=== PATIENT | female | born 1965 | race Caucasian/White ===

== ENCOUNTER 2020-03-04 14:55 | Inpatient (IN) | payer OTHER ==
--- NOTE | 2020-03-04 15:13 | PDOC ---
History of Present Illness - General Chief Complaint: Injury Stated Complaint: L ANKLE INJURY, LIGHHEADED Time Seen by Provider: 03/04/20 15:12 Discharge - Discharge Information Condition: Good - Follow up/Referral Referrals: Kaya Chaparro MD [Primary Care Provider] - - Patient Discharge Instructions - Post Discharge Activity
[2020-03-04 15:24] VITALS: BMI 25.2
[2020-03-04 16:28] LABS: BASO % 0.6 % (0-2.0); EOS % 4.4 % (0-4.5); HEMATOCRIT 31.1 % (32.4-45.2); HEMOGLOBIN 10.5 GM/dl (10.7-15.3); LYMPH % 14.5 % (8-40); MCH 32.6 pg (25.7-33.7); MCHC 33.7 g/dl (32.0-36.0); MEAN CELL VOLUME 96.7 fl (80-96); MEAN PLT VOLUME 9.4 fl (7.5-11.1); MONO % 8.1 % (3.8-10.2); NEUT % 72.4 % (42.8-82.8); PLATELET COUNT 211 K/MM3 (134-434); RBC 3.22 M/mm3 (3.60-5.2); WHITE BLOOD COUNT 5.9 K/mm3 (4.0-10.8)
[2020-03-04] MEDS ORDERED: ACETAMINOPHEN 1000 MG/100 ML VIAL (NON FORMULARY) IVPB ONE (16:35)
[2020-03-04] MEDS ORDERED: SODIUM CHLORIDE 500 ML IV STA (16:35)
[2020-03-04] MEDS ORDERED: ACETAMINOPHEN INJECTION 100 ML IVPB ONE (16:37)
[2020-03-04 16:43] LABS: ALBUMIN 3.8 g/dl (3.4-5.0); BILIRUBIN,TOTAL 0.6 mg/dl (0.2-1); CALCIUM 9.2 mg/dl (8.5-10); CREATININE 1.2 mg/dl (0.55-1.3); POTASSIUM 4.7 mmol/L (3.5-5.1); TOT PROT 6.7 g/dl (6.4-8.2)
--- NOTE | 2020-03-04 17:51 | PDOC ---
Documentation entered by Lele Navarro SCRIBE, acting as scribe for Suman Soria MD. Suman Soria MD: This documentation has been prepared by the Melanie mora Angel, SCRIBE, under my direction and personally reviewed by me in its entirety. I confirm that the documentation accurately reflects all work, treatment, procedures, and medical decision making performed by me. History of Present Illness - General Chief Complaint: Injury Stated Complaint: L ANKLE INJURY, LIGHHEADED Time Seen by Provider: 03/04/20 15:12 History Source: Patient Exam Limitations: No Limitations - History of Present Illness Initial Comments: 03/04/20 15:33 The patient is a 54 year old female with a significant past medical history of anxiety, depression, diabetes (insulin dependant), and rheumatoid arthritis who presents to the ED BIBA s/p fall. The patient states she stood up from a sitting position and began feeling lightheaded on her way to the bathroom. Eventually her legs gave out and she fell in the hallway of her house. The patient states 3 weeks ago she began taking a new medication for her diabetes which she takes once a week called Ozempic and her lightheadedness began a week after starting the medication. The patient comes into the ED mainly complaining of left ankle pain/swelling. The patient denies any head trauma, LOC or any other injuries. Medications: Ozempic once a week injection, Methotrexate once a week injection. Allergies: NKDA 03/04/20 17:35 Alert and oriented well-developed well-nourished mild distress due to left ankle pain cooperative Afebrile, vital signs stable HEENT normal Neck supple without bruit mass or nodes. No tenderness or deformity. Full range of motion without pain Chest clear, full breath sounds bilaterally, no rib cage or chest wall deformity or tenderness CV S1-S2 normal without murmur rub or gallop. Regular 80 Abdomen soft nontender without mass organomegaly. No CVAT Neurological C2 to 12 intact. Strength full and symmetric. No focal sensorimotor deficits. Unable to ambulate due to ankle pain No vertigo with head movement or change of position. No nystagmus Left ankle: Mild to moderate swelling both medially and laterally. Point tenderness both medial and lateral malleoli. No significant deformity. No instability. Left foot: Pulses are not palpable in either foot, though both posterior tibial pulses are well heard with Doppler. No distal sensory deficits. No diabetic changes. Impression: Bimalleolar ankle fracture, dizziness with questionable syncope that seems to be temporally related to beginning her new diabetes medication 3 weeks ago. Plan: CT is negative for acute neurological event. EKG and enzymes show no evidence of acute cardiac event. Glucose is controlled at 158. Definitive treatment of the fracture may require ORIF. Hospitalist and orthopedic surgeon has been contacted. Patient remains clinically and hemodynamically stable. Past History - Medical History Allergies/Adverse Reactions: Allergies Allergy/AdvReac Type Severity Reaction Status Date / Time No Known Allergies Allergy Unverified 03/04/20 15:14 Home Medications: Ambulatory Orders Abilify PO DAILY 03/04/20 Bupropion HCl [Wellbutrin Xl -] 150 mg PO HS 03/04/20 Folic Acid - PO DAILY 03/04/20 Insulin (LOG) Aspart [NovoLOG -] 0 units SQ QID 03/04/20 Insulin Pump [Insulin Pump - (Nf)] 1 each SQ ASDIR 03/04/20 Methotrexate WEEKLY 03/04/20 Metoprolol Succinate [Toprol Xl] 50 mg PO DAILY 03/04/20 Ozempic WEEKLY 03/04/20 Sertraline HCl [Zoloft] 100 mg PO HS 03/04/20 Simvastatin 20 mg PO HS 03/04/20 traZODone HCL [Trazodone HCl] 75 mg PO HS 03/04/20 COPD: No Diabetes: Yes HTN: Yes Hypercholesterolemia: Yes Psychiatric Problems: Yes - Psycho-Social/Smoking History Smoking History: Never smoked - Substance Abuse Hx (Audit-C & DAST Scrn) How often the patient has a drink containing alcohol: Never Score: In Men: 4 or > Positive; In Women: 3 or > Positive: 0 Screen Result (Pos requires Nsg. Audit-10AR): Negative In the last yr the pt used illegal drug/Rx for NonMed reason: No Score: Yes response is considered Positive: 0 Screen Result (Positive result requires Nsg. DAST-10): Negative Review of Systems - Review of Systems Able to Perform ROS?: Yes Comments:: 03/04/20 15:33 GENERAL/CONSTITUTIONAL: No fever or chills. No weakness. HEAD, EYES, EARS, NOSE AND THROAT: No change in vision. No ear pain or discharge. No sore throat. CARDIOVASCULAR: No chest pain or shortness of breath. RESPIRATORY: No cough, wheezing, or hemoptysis. GASTROINTESTINAL: No nausea, vomiting, diarrhea or constipation. GENITOURINARY: No dysuria, frequency, or change in urination. MUSCULOSKELETAL: +Left ankle pain/swelling. No neck or back pain. SKIN: No rash NEUROLOGIC: +Lightheadedness. No loss of consciousness, or change in strength/sensation. ENDOCRINE: No increased thirst. No abnormal weight change. HEMATOLOGIC/LYMPHATIC: No anemia, easy bleeding, or history of blood clots. ALLERGIC/IMMUNOLOGIC: No hives or skin allergy. *Physical Exam - Vital Signs Last Vital Signs Temp Pulse Resp BP Pulse Ox 98.3 F 87 15 106/72 96 03/04/20 15:06 03/04/20 15:06 03/04/20 15:06 03/04/20 15:06 03/04/20 15:06 ED Treatment Course - LABORATORY CBC & Chemistry Diagram: 03/04/20 15:50 03/04/20 15:50 Medical Decision Making - Medical Decision Making 03/04/20 15:48 EKG shows normal sinus rhythm rate 82/min. Normal axis and intervals. Some artifact is present in the lateral leads, but there appears to be no ST-T wave changes suggestive of ischemia. Normal EKG. 03/04/20 15:49 CT of the brain shows no acute hemorrhage, stroke, or other significant abnormality. There is an area of what appears to be chronic encephalomalacia. 03/04/20 17:31 X-ray of the left ankle was reviewed. There is an oblique fracture of the distal fibula as well as a minimally displaced fracture of the medial malleolus. Also visualized is a possible small avulsion from the talus, and a questionable disruption of the cortex of the posterior malleolus. Dr. Schmidt was contacted by phone. The fracture was described. He recommended splinting ice and elevation. He will consult on the patient in the hospital. Surgery may be required. Laboratory evaluation did not show any significant abnormalities. Glucose was 158. There were no electrolyte abnormalities. Cardiac enzymes were negative. 03/04/20 17:34 [facility] hospitalist was contacted for admission for further work-up of dizziness/syncope and definitive treatment of the ankle injury. Dr. Benito accepts the patient for admission. 03/04/20 17:35 A stirrup splint was applied to the ankle, the patient being more comfortable. There was no distal numbness tingling or pain. Pulses remained intact with Doppler. Discharge - Discharge Information Problems reviewed: Yes Clinical Impression/Diagnosis: Syncope Qualifiers: Syncope type: unspecified Qualified Code(s): R55 - Syncope and collapse Bimalleolar fracture of left ankle Qualifiers: Encounter type: initial encounter Fracture type: closed Qualified Code(s): S82.842A - Displaced bimalleolar fracture of left lower leg, initial encounter for closed fracture Condition: Good - Admission Yes - Follow up/Referral Referrals: Kaya Chaparro MD [Primary Care Provider] - - Patient Discharge Instructions - Post Discharge Activity
--- NOTE | 2020-03-04 17:54 | HP ---
CHIEF COMPLAINT: Fall/Lightheadedness PCP: HISTORY OF PRESENT ILLNESS: 54yo F with h/o anxiety/depression, T1DM, RA (weekly methotrexate) who presented via EMS due to fall. Patient reports feeling lightheaded while standing and felt her legs give out. She did not lose consciousness. She fell while on the way to the bathroom in the hallway. Patient could not stand and called EMS. 3 weeks prior patient was started on GLP-1 agonist for her DM and noted she has been lightheaded since this new medication was started. Pt's glucose here is 157. She reports she takes her glucose levels regularly with her lowest reading in the past weeks as 70. Pt told her antenna rigger, Dr. Sanchez, about her symptoms and reports that the antenna rigger was about to hold her next few doses of medications. Patient takes ASA regularly for which she took yesterday. Currently pt denies any fever/chills, headaches, SOB, CP, palpitations, abdominal pain, dysuria, polyuria, hematuria, hematochezia, diarrhea, n/v, numbness or sensation changes in lower extremities. Pt endorses loss of appetite with new medication. Drinks water regularly FamHx: DM; noncontributory PAST MEDICAL HISTORY: As above PAST SURGICAL HISTORY: Tonsillectomy Social History: Smoking: Denies Alcohol: Denies Drugs: Denies Allergies No Known Allergies Allergy (Unverified 03/04/20 15:14) HOME MEDICATIONS: Home Medications Medication Instructions Recorded Aripiprazole [Abilify] 5 mg PO DAILY 03/04/20 Aspirin Coated [Ecotrin -] 81 mg PO DAILY 03/04/20 Bupropion HCl [Wellbutrin Xl -] 150 mg PO HS 03/04/20 Folic Acid 1 mg PO DAILY 03/04/20 Insulin (LOG) Aspart [NovoLOG -] 0 units SQ QID 03/04/20 Insulin Pump [Insulin Pump - (Nf)] 1 each SQ ASDIR 03/04/20 Levothyroxine [Synthroid -] 112 mcg PO DAILY 03/04/20 Lisinopril [Zestril] 2.5 mg PO DAILY 03/04/20 Methotrexate Sodium/Pf 25 mg IJ WEEKLY 03/04/20 [Methotrexate 250 mg/10 ml Vial] Metoprolol Succinate [Toprol Xl] 50 mg PO DAILY 03/04/20 Semaglutide [Ozempic] 0.5 mg SQ WEEKLY 03/04/20 Sertraline HCl [Zoloft] 200 mg PO HS 03/04/20 Simvastatin 40 mg PO HS 03/04/20 Trazodone HCl 75 mg PO HS 03/04/20 traZODone HCL [Trazodone HCl] 75 mg PO HS 03/04/20 REVIEW OF SYSTEMS As per HPI PHYSICAL EXAMINATION Vital Signs - 24 hr 03/04/20 15:06 Temperature 98.3 F Pulse Rate 87 Respiratory 15 Rate Blood Pressure 106/72 O2 Sat by Pulse 96 Oximetry (%) GENERAL: Awake, alert, and fully oriented, in no acute distress. HEENT: Nc/AT, EOMI, ERNIE, sclera anicteric, MMM NECK: No JVD, no TTP to C-spine LUNGS: CTA bilaterally. No wheezes, and no crackles. No accessory muscle use. HEART: RRR, normal S1 and S2 without murmur ABDOMEN: Soft, NT/ND, normoactive bowel sounds, no guarding, MUSCULOSKELETAL: No gross deformity of ankle. In air splint. Toe ROM intact with limitation due to pain. No knee effusions EXTREMITIES: 2+ DP pulses b/l, warm, well-perfused. No calf tenderness. R ankle edema. NEUROLOGICAL: Cranial nerves II-XII intact. Normal speech. Sensation intact in R foot in all areas PSYCHIATRIC: Cooperative. Good eye contact. Appropriate mood and affect. SKIN: Warm, dry, no rashes or lesions noted Laboratory Results - last 24 hr 03/04/20 03/04/20 03/04/20 15:50 15:50 15:50 WBC 5.9 RBC 3.22 L Hgb 10.5 L Hct 31.1 L MCV 96.7 H MCH 32.6 MCHC 33.7 RDW 13.0 Plt Count 211 MPV 9.4 Absolute Neuts (auto) 4.2 Neutrophils % 72.4 Lymphocytes % 14.5 Monocytes % 8.1 Eosinophils % 4.4 Basophils % 0.6 Sodium 134 L Potassium 4.7 Chloride 97 L Carbon Dioxide 25 Anion Gap 12 BUN 20.0 H Creatinine 1.2 Est GFR (CKD-EPI)AfAm 58.51 Est GFR (CKD-EPI)NonAf 50.48 Random Glucose 158 H Calcium 9.2 Total Bilirubin 0.6 AST 24 ALT 14 Alkaline Phosphatase 61 Creatine Kinase 71 Troponin I < 0.03 Total Protein 6.7 Albumin 3.8 Urine Color Urine Appearance Urine pH Urine Protein Urine Glucose (UA) Urine Ketones Urine Blood Urine Nitrite Urine Bilirubin Urine Urobilinogen Ur Leukocyte Esterase 03/04/20 17:20 WBC RBC Hgb Hct MCV MCH MCHC RDW Plt Count MPV Absolute Neuts (auto) Neutrophils % Lymphocytes % Monocytes % Eosinophils % Basophils % Sodium Potassium Chloride Carbon Dioxide Anion Gap BUN Creatinine Est GFR (CKD-EPI)AfAm Est GFR (CKD-EPI)NonAf Random Glucose Calcium Total Bilirubin AST ALT Alkaline Phosphatase Creatine Kinase Troponin I Total Protein Albumin Urine Color Yellow Urine Appearance Clear Urine pH 6.5 Urine Protein Negative Urine Glucose (UA) Negative Urine Ketones Negative Urine Blood Negative Urine Nitrite Negative Urine Bilirubin Negative Urine Urobilinogen 0.2 Ur Leukocyte Esterase Trace H ASSESSMENT/PLAN: Syncope vs. Pre-syncope L Bimaleollar ankle fracture T1DM Hypothyroidism CAD without intervention --Likely presyncope related to medication --Suspect patient is becoming hypoglycemic during these episodes --Telemetry monitoring for aberrant rhythm --BGM ACHS with ISS coverage; patient may still be under effects of weekly GLP-1 --D50 amp PRN for hypoglycemia --Dr. Schmidt consulted in ED --Probably surgery, but will come to assess --Type and screen, coags for AM --Tylenol and morphine for PRN pain control --Continue home medications as below: Aripiprazole (Abilify) 5 mg PO DAILY NAA Levothyroxine Sodium (Synthroid -) 112 mcg PO ACBK NAA Lisinopril (Prinivil) 2.5 mg PO DAILY NAA Metoprolol Succinate (Toprol Xl -) 50 mg PO DAILY NAA Non-Formulary Medication (Sertraline Hcl [Zoloft]) 200 mg PO HS NAA Trazodone HCl (Desyrel -) 75 mg PO HS NAA diet: Diabetic/sodium PPX: SCD only R LEG Dispo: Admit M/S Wili Benito, DO - IM Visit type - Emergency Visit Emergency Visit: Yes ED Registration Date: 03/04/20 Care time: The patient presented to the Emergency Department on the above date and was hospitalized for further evaluation of their emergent condition. - New Patient This patient is new to me today: Yes Date on this admission: 03/04/20 - Critical Care Critical Care patient: No
[2020-03-04 17:59] LABS: EPITHELIAL CELLS FEW /hpf
[2020-03-04] MEDS ORDERED: DEXTROSE 50%-WATER - 25 GM/50 ML VIAL IVPUSH PRN (18:26)
[2020-03-04] MEDS: traZODone HCL 50 MG TABLET (FP) PO SCH (21:18)
[2020-03-04] MEDS: SERTRALINE HCL 50 MG TABLET (FP) PO SCH (21:19)
[2020-03-04] MEDS: ACETAMINOPHEN 1000 MG/100 ML VIAL (NON FORMULARY) IVPB PRN (21:33)
[2020-03-04] MEDS: INSULIN SLIDING SCALE (NOVOLOG) 1 VIAL SQ SCH (21:33)
[2020-03-05] MEDS: ACETAMINOPHEN 1000 MG/100 ML VIAL (NON FORMULARY) IVPB PRN (05:49)
[2020-03-05] MEDS: INSULIN SLIDING SCALE (NOVOLOG) 1 VIAL SQ SCH ×4 (06:34→22:54)
[2020-03-05] MEDS: LEVOTHYROXINE NA 112 MCG TABLET (FP) PO SCH (06:35)
[2020-03-05 08:14] LABS: HEMATOCRIT 29.3 % (32.4-45.2); HEMOGLOBIN 9.5 GM/dl (10.7-15.3); MCH 32.4 pg (25.7-33.7); MCHC 32.5 g/dl (32.0-36.0); MEAN CELL VOLUME 99.6 fl (80-96); MEAN PLT VOLUME 9.7 fl (7.5-11.1); PLATELET COUNT 184 K/MM3 (134-434); RBC 2.94 M/mm3 (3.60-5.2); RDW 12.7 % (11.6-15.6); WHITE BLOOD COUNT 5.5 K/mm3 (4.0-10.8)
[2020-03-05 08:15] LABS: INR 1.17 (0.82-1.09); PROTHROMBIN TIME (PATIENT) 13.1 SEC (10.2-13.0)
[2020-03-05 08:26] LABS: CREATININE 1.1 mg/dl (0.55-1.3)
[2020-03-05 08:31] LABS: CALCIUM 8.7 mg/dl (8.5-10); POTASSIUM 4.6 mmol/L (3.5-5.1)
--- NOTE | 2020-03-05 08:56 | CON.ORTH ---
Consult Reason for Consultation:: left ankle fx - Past Medical History ...: No - Smoking History Smoking history: Never smoked Home Medications - Allergies Allergies/Adverse Reactions: Allergies Allergy/AdvReac Type Severity Reaction Status Date / Time No Known Allergies Allergy Unverified 03/04/20 15:14 - Home Medications Home Medications: Ambulatory Orders Aripiprazole [Abilify] 5 mg PO DAILY 03/04/20 Aspirin Coated [Ecotrin -] 81 mg PO DAILY 03/04/20 Bupropion HCl [Wellbutrin Xl -] 150 mg PO HS 03/04/20 Folic Acid 1 mg PO DAILY 03/04/20 Insulin (LOG) Aspart [NovoLOG -] 0 units SQ QID 03/04/20 Insulin Pump [Insulin Pump - (Nf)] 1 each SQ ASDIR 03/04/20 Levothyroxine [Synthroid -] 112 mcg PO DAILY 03/04/20 Lisinopril [Zestril] 2.5 mg PO DAILY 03/04/20 Methotrexate Sodium/Pf [Methotrexate 250 mg/10 ml Vial] 25 mg IJ WEEKLY 03/04/20 Metoprolol Succinate [Toprol Xl] 50 mg PO DAILY 03/04/20 Semaglutide [Ozempic] 0.5 mg SQ WEEKLY 03/04/20 Sertraline HCl [Zoloft] 200 mg PO HS 03/04/20 Simvastatin 40 mg PO HS 03/04/20 Trazodone HCl 75 mg PO HS 03/04/20 traZODone HCL [Trazodone HCl] 75 mg PO HS 03/04/20 Physical Exam for Ortho Vital Signs: Vital Signs Temperature 99.1 F 03/05/20 08:00 Pulse Rate 91 H 03/05/20 08:00 Respiratory Rate 20 03/05/20 08:00 Blood Pressure 97/61 03/05/20 08:00 O2 Sat by Pulse Oximetry (%) 99 03/05/20 08:00 Labs: CBC, BMP 03/05/20 07:17 03/05/20 06:00 INR, PTT INR 1.17 (0.82-1.09) 03/05/20 06:00 - Lower Extremity Ankle: Yes: Left, Limited ROM, Pain, Swelling, Tenderness, Other (+ swelling, + ttp medial and lateral mal, decr rom, nvi) Imaging - Results X-ray: Image Reviewed Assessment/Plan 54yo F with h/o anxiety/depression, T1DM, RA (weekly methotrexate) who presented via EMS due to fall. Patient reports feeling lightheaded while standing and felt her legs give out. Pt sustained left mari ankle fx. a/p left displaced mari fx Risks and benefits were d/w pt in detail OR tomorrow for left ankle orif pending clearance and covid testing surgical clearance NPo after midnight strict elevation d/w Dr. Schmidt
--- NOTE | 2020-03-05 09:22 | EKG ---
Test Reason : Blood Pressure : / mmHG Vent. Rate : 082 BPM Atrial Rate : 082 BPM P-R Int : 180 ms QRS Dur : 094 ms QT Int : 346 ms P-R-T Axes : 052 041 026 degrees QTc Int : 404 ms NORMAL SINUS RHYTHM NORMAL ECG NO PREVIOUS ECGS AVAILABLE Confirmed by Ivone Lyons ([id number]) on 03/05/2020 9:22:02 AM Referred By: Confirmed By:Ivone Lyons
[2020-03-05] MEDS ORDERED: PT OWN MED DRAWER 7, Y5N ONE (10:33)
[2020-03-05] MEDS: ARIPiprazole 5 MG TABLET PO SCH (10:45)
[2020-03-05] MEDS: LISINOPRIL 5 MG TABLET (FP) PO SCH (10:45)
[2020-03-05] MEDS ORDERED: SODIUM CHLORIDE 1,000 ML IV SCH (17:30)
[2020-03-05] MEDS ORDERED: PATIENT'S OWN MEDICATION (NON-FORMULARY) (Lisinopril [Zestril] 2.5 MG) PO SCH (17:30)
--- NOTE | 2020-03-05 17:45 | PN ---
Physical Exam: SUBJECTIVE: Patient seen and examined. Pain in left foot and ankle, gets good relief with morphine. OBJECTIVE: Vital Signs Period Temp Pulse Resp BP Sys/Thomson Pulse Ox Last 24 Hr 98 F-99.1 F 83-96 16-20 92-128/45-67 94-99 GENERAL: The patient is awake, alert, and fully oriented, in no acute distress. LUNGS: Breath sounds equal, clear to auscultation bilaterally, no wheezes, no crackles, no accessory muscle use. HEART: Regular rate and rhythm, S1, S2 ABDOMEN: Soft, nontender, nondistended, LLE: foot in stirrup device, + pulses, warm, well-perfused, + edema NEUROLOGICAL: Cranial nerves II through XII grossly intact. Normal speech, gait not observed. Laboratory Results - last 24 hr 03/04/20 03/04/20 03/04/20 17:00 17:20 21:16 WBC RBC Hgb Hct MCV MCH MCHC RDW Plt Count MPV PT with INR Cancelled INR Cancelled Sodium Potassium Chloride Carbon Dioxide Anion Gap BUN Creatinine Est GFR (CKD-EPI)AfAm Est GFR (CKD-EPI)NonAf POC Glucometer 160 Random Glucose Calcium Urine Color Yellow Urine Appearance Clear Urine pH 6.5 Urine Protein Negative Urine Glucose (UA) Negative Urine Ketones Negative Urine Blood Negative Urine Nitrite Negative Urine Bilirubin Negative Urine Urobilinogen 0.2 Ur Leukocyte Esterase Trace H Urine RBC 0-2 Urine WBC 2-5 Ur Transition Epith Cell Few Hyaline Casts 1-3 Blood Type Antibody Screen 03/05/20 03/05/20 03/05/20 06:00 06:00 06:25 WBC RBC Hgb Hct MCV MCH MCHC RDW Plt Count MPV PT with INR 13.1 H INR 1.17 Sodium 130 L Potassium 4.6 Chloride 96 L Carbon Dioxide 24 Anion Gap 10 BUN 16.0 Creatinine 1.1 Est GFR (CKD-EPI)AfAm 65.00 Est GFR (CKD-EPI)NonAf 56.08 POC Glucometer 345 Random Glucose 307 H Calcium 8.7 Urine Color Urine Appearance Urine pH Urine Protein Urine Glucose (UA) Urine Ketones Urine Blood Urine Nitrite Urine Bilirubin Urine Urobilinogen Ur Leukocyte Esterase Urine RBC Urine WBC Ur Transition Epith Cell Hyaline Casts Blood Type Antibody Screen 03/05/20 03/05/20 07:14 07:17 WBC 5.5 RBC 2.94 L Hgb 9.5 L Hct 29.3 L MCV 99.6 H MCH 32.4 MCHC 32.5 RDW 12.7 Plt Count 184 MPV 9.7 PT with INR INR Sodium Potassium Chloride Carbon Dioxide Anion Gap BUN Creatinine Est GFR (CKD-EPI)AfAm Est GFR (CKD-EPI)NonAf POC Glucometer Random Glucose Calcium Urine Color Urine Appearance Urine pH Urine Protein Urine Glucose (UA) Urine Ketones Urine Blood Urine Nitrite Urine Bilirubin Urine Urobilinogen Ur Leukocyte Esterase Urine RBC Urine WBC Ur Transition Epith Cell Hyaline Casts Blood Type A POSITIVE Antibody Screen Negative Active Medications Generic Name Dose Route Start Last Admin Trade Name Freq PRN Reason Stop Dose Admin Acetaminophen 1,000 mg 03/04/20 17:55 03/05/20 05:49 Ofirmev Injection - IVPB 03/05/20 17:55 1,000 mg Q6H PRN Administration PAIN LEVEL 4 - 6 Aripiprazole 5 mg 03/05/20 10:00 03/05/20 10:45 Abilify PO 5 mg DAILY NAA Administration Dextrose 25 gm 03/04/20 18:26 D50w (Vial) - IVPUSH PRN PRN HYPOGLYCEMIA Insulin Aspart 1 vial 03/04/20 22:00 03/05/20 11:43 Novolog Vial Sliding Scale - SQ Not Given ACHS NAA Protocol Levothyroxine Sodium 112 mcg 03/05/20 07:00 03/05/20 06:35 Synthroid - PO 112 mcg ACBK NAA Administration Lisinopril 2.5 mg 03/05/20 10:00 03/05/20 10:45 Prinivil PO 2.5 mg DAILY NAA Administration Metoprolol Succinate 50 mg 03/05/20 10:00 03/05/20 10:46 Toprol Xl - PO 50 mg DAILY NAA Administration Morphine Sulfate 2 mg 03/04/20 17:55 Morphine Sulfate IVPUSH Q4H PRN PAIN LEVEL 7 - 10 Sertraline HCl 200 mg 03/04/20 22:00 03/04/20 21:19 Zoloft - PO 200 mg HS NAA Administration Trazodone HCl 75 mg 03/04/20 22:00 03/04/20 21:18 Desyrel - PO 75 mg HS NAA Administration PCP: Dr. Chaparro Endocrine: Dr. Dominguez Rheumatology: Dr. Coppola/ Cardiology: Dr. Boss ADDITIONAL PMH Hypertension h/o rapid heart beat Head trauma (sledding accident in 4th grade) ASSESSMENT/PLAN: The patient is a 54 year-old female with a PMH significant for HTN, cardiac arrhythmia, Type II IDDM, rheumatoid arthritis, remote head trauma, anxiety and depression. Admitted for left bimalleolar fracture s/p fall. Syncope --in the last 10 days has fallen 3 times; (+) prodromal symptoms of unsteadiness and dizziness immediately prior to each fall; on most recent fall, may have had LOC prior to falling --remote history of head trauma as a child --h/o "rapid heart beat" for which she is prescribed ToprolXL --fingersticks regularly, no episodes of hypoglycemia over the last 10 days --troponin neg x 1; second pending --telemetry monitoring --cardiology consult --neuro consult Left bimalleolar fracture --oblique fracture of the distal fibula as well as a minimally displaced fracture of the medial malleolus. Also visualized is a possible small avulsion from the talus, and a questionable disruption of the cortex of the posterior malleolus --plan is for surgical repair pending cardiac clearance and COVID results --IV tylenol and morphine PRN for pain Hypertension --BP on low side --gentle IV fluids Cardiac arrhythmia --has been on ToprolXL "for years" cannot be more specific than a h/o rapid heart beat years ago --cardiology consult placed --telemetry monitoring Type II IDDM --functioning Humalog insulin pump --nursing staff to continue fingersticks and to cover with Novolog per sliding scale --A1C ordered Rheumatoid arthritis --methotrexate weekly FEN Fluids: NS@50mL/hr Electrolytes: replete as indicated Nutrition: low sodium; NPO after midnight DVT prophylaxis: SCDs Dispo: continues to require inpatient care. Full code. Visit type - Emergency Visit Emergency Visit: Yes ED Registration Date: 03/04/20 Care time: The patient presented to the Emergency Department on the above date and was hospitalized for further evaluation of their emergent condition. - New Patient This patient is new to me today: Yes Date on this admission: 03/06/20 - Critical Care Critical Care patient: No
[2020-03-05] MEDS: FOLIC ACID 1 MG TABLET (FP) PO SCH (17:58)
[2020-03-05] MEDS: SERTRALINE HCL 50 MG TABLET (FP) PO SCH (21:34)
[2020-03-05] MEDS: ATORVASTATIN CA 20 MG TABLET (FP) PO SCH (21:34)
[2020-03-05] MEDS: traZODone HCL 50 MG TABLET (FP) PO SCH (21:34)
[2020-03-05] MEDS: MORPHINE SULFATE 2 MG/ML VIAL IVPUSH PRN (21:35)
[2020-03-05] MEDS ORDERED: PATIENT'S OWN MEDICATION (NON-FORMULARY) (Simvastatin [Simvastatin] 40 MG) PO SCH (22:00)
[2020-03-05] MEDS ORDERED: TRAZODONE HCL 75 MG PO SCH (22:00)
[2020-03-06] MEDS: MORPHINE SULFATE 2 MG/ML VIAL IVPUSH PRN ×2 (01:07→06:59)
[2020-03-06] MEDS: INSULIN SLIDING SCALE (NOVOLOG) 1 VIAL SQ SCH ×4 (06:16→22:33)
[2020-03-06] MEDS: LEVOTHYROXINE NA 112 MCG TABLET (FP) PO SCH (06:17)
[2020-03-06] MEDS ORDERED: LOCK ITEM NR ONE (06:42)
[2020-03-06 08:24] LABS: ALBUMIN 3.1 g/dl (3.4-5.0); BILIRUBIN,TOTAL 0.5 mg/dl (0.2-1); CALCIUM 8.8 mg/dl (8.5-10); CREATININE 0.9 mg/dl (0.55-1.3); MAGNESIUM 1.6 mg/dL (1.8-2.4); POTASSIUM 4.3 mmol/L (3.5-5.1); TOT PROT 5.8 g/dl (6.4-8.2)
[2020-03-06 08:33] LABS: BASO % 0.6 % (0-2.0); EOS % 4.2 % (0-4.5); HEMATOCRIT 27.1 % (32.4-45.2); HEMOGLOBIN 9.2 GM/dl (10.7-15.3); LYMPH % 17.4 % (8-40); MCH 33.1 pg (25.7-33.7); MCHC 33.8 g/dl (32.0-36.0); MEAN CELL VOLUME 97.9 fl (80-96); MEAN PLT VOLUME 9.6 fl (7.5-11.1); MONO % 11.7 % (3.8-10.2); NEUT % 66.1 % (42.8-82.8); PLATELET COUNT 196 K/MM3 (134-434); RBC 2.77 M/mm3 (3.60-5.2); RDW 12.3 % (11.6-15.6); WHITE BLOOD COUNT 5.3 K/mm3 (4.0-10.8)
--- NOTE | 2020-03-06 09:11 | CON.CARD ---
Consult Consult Specialty:: Cardiology Referred by:: Hospitalist Reason for Consultation:: Cardiac evaluation - History of Present Illness Chief Complaint: Post fall resulting in left ankle fracture History of Present Illness: Patient is a 54 year old female with underlying history of anxiety/depression, Diabetes Mellitus, HTN, hypothyroidism and RA who presented with lightheadedness resulting in a fall 2 days ago. This resulted in a fracture of the left ankle for which she is waiting surgery. She states that she had fallen few times since the new DM medication (GLP-1 agonist: Ozempic) and previously thinks that she had lost consciousness. Patient denies LOC this time. She denies chest pain, shortness of breath or palpitations. She denies PND or orthopnea. She denies fever or chills. She denies cough or expectorations. She denies nausea, vomiting, diarrhea or abdominal pain. She denies headache. Bonded Structures Repairer: Hamzah Boss MD ([facility]) - History Source History Provided By: Patient, Medical Record Limitations to Obtaining History: No Limitations - Past Medical History Cardio/Vascular: Yes: HTN Psych: Yes: Anxiety, Depression Rheumatology: Yes: Rheumatoid Arthritis Endocrine: Yes: Diabetes Mellitus - Past Surgical History Past Surgical History: Yes: Tonsillectomy - Alcohol/Substance Use Hx Alcohol Use: No History of Substance Use: reports: None - Smoking History Smoking history: Never smoked Home Medications - Allergies Allergies/Adverse Reactions: Allergies Allergy/AdvReac Type Severity Reaction Status Date / Time No Known Allergies Allergy Unverified 03/04/20 15:14 - Home Medications Home Medications: Ambulatory Orders Aripiprazole [Abilify] 5 mg PO DAILY 03/04/20 Aspirin Coated [Ecotrin -] 81 mg PO DAILY 03/04/20 Bupropion HCl [Wellbutrin Xl -] 150 mg PO HS 03/04/20 Folic Acid 1 mg PO DAILY 03/04/20 Insulin (LOG) Aspart [NovoLOG -] 0 units SQ QID 03/04/20 Insulin Pump [Insulin Pump - (Nf)] 1 each SQ ASDIR 03/04/20 Levothyroxine [Synthroid -] 112 mcg PO DAILY 03/04/20 Lisinopril [Zestril] 2.5 mg PO DAILY 03/04/20 Methotrexate Sodium/Pf [Methotrexate 250 mg/10 ml Vial] 25 mg IJ WEEKLY 03/04/20 Metoprolol Succinate [Toprol Xl] 50 mg PO DAILY 03/04/20 Semaglutide [Ozempic] 0.5 mg SQ WEEKLY 03/04/20 Sertraline HCl [Zoloft] 200 mg PO HS 03/04/20 Simvastatin 40 mg PO HS 03/04/20 Trazodone HCl 75 mg PO HS 03/04/20 traZODone HCL [Trazodone HCl] 75 mg PO HS 03/04/20 Family Medical History Other Family History: Family history of AF, HTN Review of Systems - Review of Systems Constitutional: denies: Chills, Fever Cardiovascular: denies: Chest Pain, Palpitations, Shortness of Breath Respiratory: denies: Cough, Hemoptysis, Orthopnea, PND, SOB, SOB on Exertion, Wheezing Gastrointestinal: denies: Abdominal Pain, Constipation, Diarrhea, Melena, Nausea, Rectal Bleeding, Vomiting Genitourinary: denies: Dysuria, Hematuria Musculoskeletal: denies: Back Pain, Joint Pain Neurological: reports: Dizziness, Syncope. denies: Confusion, Headache, Numbness, Parasthesia, Seizure, Unsteady Gait, Weakness Psychiatric: reports: Anxiety, Depression Vital Signs: Vital Signs Temperature 98.7 F 03/06/20 06:00 Pulse Rate 84 03/06/20 06:00 Respiratory Rate 18 03/06/20 06:00 Blood Pressure 120/63 03/06/20 06:00 O2 Sat by Pulse Oximetry (%) 100 03/06/20 08:17 HENT: Yes: Atraumatic Neck: Yes: Supple Respiratory: Yes: CTA Bilaterally Gastrointestinal: Yes: Normal Bowel Sounds, Soft. No: Tenderness Cardiovascular: Yes: Regular Rate and Rhythm JVD: No Carotid Bruit: No PMI: Non-Displaced Heart Sounds: Yes: S1, S2. No: Gallop Murmur: No: Systolic Murmur, Diastolic Murmur Edema: No - Other Data Labs, Other Data: CBC, BMP 03/06/20 07:38 03/06/20 07:38 INR, PTT INR 1.17 (0.82-1.09) 03/05/20 06:00 Troponin, BNP 03/05/20 06:00 Troponin I < 0.03 Troponin, BNP 03/05/20 06:00 Troponin I < 0.03 Imaging - Results X-ray: Report Reviewed (XRay: left distal fibula and medial malleolar fracture) EKG: Report Reviewed Problem List - Problems (1) HTN (hypertension) Code(s): I10 - ESSENTIAL (PRIMARY) HYPERTENSION (2) Diabetes mellitus Code(s): E11.9 - TYPE 2 DIABETES MELLITUS WITHOUT COMPLICATIONS Qualifiers: Diabetes mellitus type: type 1 Diabetes mellitus complication status: wit hout complication Qualified Code(s): E10.9 - Type 1 diabetes mellitus without complications (3) Rheumatoid arthritis Code(s): M06.9 - RHEUMATOID ARTHRITIS, UNSPECIFIED (4) Hypothyroidism Code(s): E03.9 - HYPOTHYROIDISM, UNSPECIFIED (5) Anxiety Code(s): F41.9 - ANXIETY DISORDER, UNSPECIFIED (6) Depression Code(s): F32.9 - MAJOR DEPRESSIVE DISORDER, SINGLE EPISODE, UNSPECIFIED (7) Bimalleolar fracture of left ankle Code(s): S82.842A - DISPLACED BIMALLEOLAR FRACTURE OF LEFT LOWER LEG, INIT Qualifiers: Encounter type: initial encounter Fracture type: closed Qualified Code(s): S82.842A - Displaced bimalleolar fracture of left lower leg, initial encounter for closed fracture (8) Syncope Code(s): R55 - SYNCOPE AND COLLAPSE Qualifiers: Syncope type: unspecified Qualified Code(s): R55 - Syncope and collapse (9) Preop cardiovascular exam Code(s): Z01.810 - ENCOUNTER FOR PREPROCEDURAL CARDIOVASCULAR EXAMINATION Assessment/Plan 1. Post fall resulting in left ankle fracture 2. ? Near syncope possible due to hypoglycemia 3. Hyponatremia 4. HTN 5. Insulin requiring DM 6. RA 7. Hypothyroidism 8. Anxiety/Depression PLAN: 1. No absolute contraindication for surgery in view of absence of ischemic symptoms, decompensated congestive heart failure or malignant arrhythmia 2. Continue Metoprolol ER but 25 mg QD and Lisinopril 2.5 mg QD as tolerated 3. DM management to be adjusted 4. Thyroid replacement therapy 5. Monitor electrolytes and correct NA 6. Surgery pending COVD testing Bonded Structures Repairer: Hamzah Boss MD ([facility]) To follow up with Dr. Boss upon discharge after surgery Thank you for your consultation request Bruno José MD
--- NOTE | 2020-03-06 09:37 | PN ---
Physical Exam: SUBJECTIVE: Patient seen and examined OBJECTIVE: Vital Signs Period Temp Pulse Resp BP Sys/Thomson Pulse Ox Last 24 Hr 97.9 F-99.1 F 81-87 18-20 110-139/63-73 94-100 GENERAL: The patient is awake, alert, and fully oriented, in no acute distress. LUNGS: Breath sounds equal, clear to auscultation bilaterally, no wheezes, no crackles, no accessory muscle use. HEART: Regular rate and rhythm, S1, S2 ABDOMEN: Soft, nontender, nondistended, LLE: foot in stirrup device, + pulses, warm, well-perfused, + increased edema NEUROLOGICAL: Cranial nerves II through XII grossly intact. Normal speech, gait not observed. Laboratory Results - last 24 hr 03/05/20 03/05/20 03/06/20 06:00 07:14 07:38 WBC 5.3 RBC 2.77 L Hgb 9.2 L Hct 27.1 L MCV 97.9 H MCH 33.1 MCHC 33.8 RDW 12.3 Plt Count 196 MPV 9.6 Absolute Neuts (auto) 3.6 Neutrophils % 66.1 Lymphocytes % 17.4 Monocytes % 11.7 H Eosinophils % 4.2 Basophils % 0.6 Sodium Potassium Chloride Carbon Dioxide Anion Gap BUN Creatinine Est GFR (CKD-EPI)AfAm Est GFR (CKD-EPI)NonAf Random Glucose Hemoglobin A1c % Calcium Magnesium Total Bilirubin AST ALT Alkaline Phosphatase Troponin I < 0.03 Total Protein Albumin TSH Blood Type A POSITIVE Antibody Screen Negative 03/06/20 03/06/20 07:38 07:38 WBC RBC Hgb Hct MCV MCH MCHC RDW Plt Count MPV Absolute Neuts (auto) Neutrophils % Lymphocytes % Monocytes % Eosinophils % Basophils % Sodium 132 L Potassium 4.3 Chloride 100 Carbon Dioxide 25 Anion Gap 7 L BUN 11.0 Creatinine 0.9 Est GFR (CKD-EPI)AfAm 82.84 Est GFR (CKD-EPI)NonAf 71.48 Random Glucose 212 H Hemoglobin A1c % 7.4 H Calcium 8.8 Magnesium 1.6 L Total Bilirubin 0.5 AST 20 ALT 13 Alkaline Phosphatase 57 Troponin I Total Protein 5.8 L Albumin 3.1 L TSH 1.33 Blood Type Antibody Screen Active Medications Generic Name Dose Route Start Last Admin Trade Name Freq PRN Reason Stop Dose Admin Aripiprazole 5 mg 03/05/20 10:00 03/05/20 10:45 Abilify PO 5 mg DAILY NAA Administration Atorvastatin Calcium 20 mg 03/05/20 22:00 03/05/20 21:34 Lipitor - PO 20 mg HS NAA Administration Bupropion HCl 150 mg 03/05/20 22:00 03/05/20 21:34 Wellbutrin Xl - PO 150 mg HS NAA Administration Dextrose 25 gm 03/04/20 18:26 D50w (Vial) - IVPUSH PRN PRN HYPOGLYCEMIA Folic Acid 1 mg 03/05/20 17:30 03/05/20 17:58 Folic Acid - PO 1 mg DAILY NAA Administration Sodium Chloride 1,000 mls @ 50 mls/hr 03/05/20 17:30 03/05/20 17:58 Normal Saline - IV 03/06/20 17:24 50 mls/hr ASDIR NAA Administration Insulin Aspart 1 vial 03/04/20 22:00 03/06/20 06:16 Novolog Vial Sliding Scale - SQ Not Given ACHS NAA Protocol Levothyroxine Sodium 112 mcg 03/05/20 07:00 03/06/20 06:17 Synthroid - PO 112 mcg ACBK NAA Administration Lisinopril 2.5 mg 03/05/20 10:00 03/05/20 10:45 Prinivil PO 2.5 mg DAILY NAA Administration Metoprolol Succinate 50 mg 03/05/20 10:00 03/05/20 10:46 Toprol Xl - PO 50 mg DAILY NAA Administration Morphine Sulfate 2 mg 03/04/20 17:55 03/06/20 06:59 Morphine Sulfate IVPUSH 2 mg Q4H PRN Administration PAIN LEVEL 7 - 10 Sertraline HCl 200 mg 03/04/20 22:00 03/05/20 21:34 Zoloft - PO 200 mg HS NAA Administration Trazodone HCl 75 mg 03/04/20 22:00 03/05/20 21:34 Desyrel - PO 75 mg HS NAA Administration ASSESSMENT/PLAN: The patient is a 54 year-old female with a PMH significant for HTN, cardiac arrhythmia, Type II IDDM, hypothyroidism, rheumatoid arthritis, remote head trauma, anxiety and depression. Admitted for left bimalleolar fracture s/p fall. Syncope --in the last 10 days has fallen 3 times; (+) prodromal symptoms of unsteadiness and dizziness immediately prior to each fall; on most recent fall, may have had LOC prior to falling --remote history of head trauma as a child --h/o "rapid heart beat" for which she is prescribed ToprolXL --fingersticks regularly, no episodes of hypoglycemia over the last 10 days --troponin neg x 2 --telemetry monitoring: no events --cardiology: decrease ToprolXL dose to 25mg --neuro consult pending Left bimalleolar fracture --oblique fracture of the distal fibula as well as a minimally displaced fracture of the medial malleolus. Also visualized is a possible small avulsion from the talus, and a questionable disruption of the cortex of the posterior malleolus --to OR this afternoon; cardiac clearance; COVID negative Hypertension --BP on low side --gentle IV fluids Cardiac arrhythmia --has been on ToprolXL "for years" cannot be more specific than a h/o rapid heart beat years ago --telemetry monitoring Type II IDDM --HgbA1C 7.4 --functioning Humalog insulin pump --nursing staff to continue fingersticks and to cover with Novolog per sliding scale --A1C ordered Hypothyroidism --TSH wnl --continue levothyroxine Rheumatoid arthritis --methotrexate weekly; daily folic acid Anxiety/depression --continue Abilify, Wellbutrin, trazodone Hypomagnesemia --repleted FEN Fluids: NS@50mL/hr Electrolytes: replete as indicated Nutrition: NPO pre-op DVT prophylaxis: SCDs Dispo: continues to require inpatient care. Full code. Visit type - Emergency Visit Emergency Visit: Yes ED Registration Date: 03/04/20 Care time: The patient presented to the Emergency Department on the above date and was hospitalized for further evaluation of their emergent condition. - New Patient This patient is new to me today: No - Critical Care Critical Care patient: No
[2020-03-06] MEDS ORDERED: MAGNESIUM SULF 50% (8.12 MEQ/2 ML-1 GM VIAL) IVPB ONE (09:41)
[2020-03-06] MEDS ORDERED: MAGNESIUM SULFATE IN WATER 2 GM/50 ML IVPB IVPB ONE (09:45)
[2020-03-06] MEDS: FOLIC ACID 1 MG TABLET (FP) PO SCH (10:14)
[2020-03-06] MEDS: ARIPiprazole 5 MG TABLET PO SCH (10:14)
[2020-03-06] MEDS: LISINOPRIL 5 MG TABLET (FP) PO SCH (10:15)
[2020-03-06] MEDS ORDERED: ceFAZolin SODIUM 1 GM VIAL ONE (14:05)
[2020-03-06] MEDS ORDERED: LIDOCAINE HCL/PF 2% SDV 5ML VIAL ONE ×2 (14:05→14:14)
[2020-03-06] MEDS ORDERED: PROPOFOL 20 ML ONE ×2 (14:05→14:14)
[2020-03-06] MEDS ORDERED: ONDANSETRON 4 MG/2 ML VIAL ONE (14:14)
[2020-03-06] MEDS ORDERED: DEXAMETHASONE SOD PHOSPHATE 4 MG/1 ML VIAL ONE (14:14)
[2020-03-06] MEDS ORDERED: MIDAZOLAM HCL 2 MG/2 ML SINGLE DOSE VIAL ONE (14:15)
[2020-03-06] MEDS ORDERED: ONDANSETRON 4 MG/2 ML VIAL IVPUSH PRN (14:35)
[2020-03-06] MEDS ORDERED: LACTATED RINGERS SOLUTION 1,000 ML IV SCH (14:45)
[2020-03-06] MEDS ORDERED: BUPIVACAINE HCL/PF 0.5% (5 MG/ML) 30 ML VIAL IJ ONE (14:46)
--- NOTE | 2020-03-06 17:23 | OP ---
Operative Note - Note: Operative Date: 03/06/20 (junaid) Pre-Operative Diagnosis: left ankle mari fx Operation: left ankle orif, syndesmosis repair Post-Operative Diagnosis: Same as Pre-op Surgeon: Javed Schmidt [facility] Underwriter: Jose Miguel Rivers Anesthesia: General, Local Estimated Blood Loss (mls): 50
--- NOTE | 2020-03-06 19:22 | CONSULT ---
Consult - text type - Consultation Consultation Note: NEUROLOGY CONSULTATION is greatly appreciated: Events reviewed. Patient examined at 9 AM today. This 54 yo RH m woman with a 19 yo daughter has a long h/o DM, hypothyroidism, HTN and depression. Maintained on: Abilify; Bupropion 150; Insulin (LOG) via pump; Methotrexate; Metoprolol 50; lisinopril; Ozempic; Sertraline 100; Simvastatin; Trazodone 75. Admitted after after syncope proceeded by clear prodrome of lightheadedness, graying of vision -> LOC with left trimaleolar fracture. Pt reports multiple episodes of lightheadedness when getting up from bed or chair x 1 month (since starting Ozempic). > 5 years of numbness in feet affecting balance OMI: No head trauma. Left leg in splint. No bruits. Cor reg. NEURO: Awake, alert, Ox 3. MS/speech: Normal CN II-XII: Normal without nystagmus Motor: Normal strength. Areflexic in legs. Toes downgoing Coord: No FTN Dystaxia Sensory: Reduced vibration to ankles IMP: Non-focal exam sig for a moderate Diabetic peripheral neuropathy. Syncope/presyncope due to orthostatic hypotension- possibly suggesting the development of Dysautonomia associated with the neuropathy SUGGEST: Taper and D/C metoprolol. Reduce lisinopril if possible (Patient is concerned about losing renal protection) Follow orthostatic BP's. Neuro f/u for Midodrine Rx if symptoms persist. Thank you very much, Javde Corley MD
[2020-03-06] MEDS: ATORVASTATIN CA 20 MG TABLET (FP) PO SCH (21:40)
[2020-03-06] MEDS: traZODone HCL 50 MG TABLET (FP) PO SCH (21:40)
[2020-03-06] MEDS: SERTRALINE HCL 50 MG TABLET (FP) PO SCH (21:41)
[2020-03-06] MEDS: ceFAZolin 2 GRAM PREMIX BAG IVPB SCH (22:39)
[2020-03-07] MEDS: INSULIN SLIDING SCALE (NOVOLOG) 1 VIAL SQ SCH ×4 (06:12→21:24)
[2020-03-07] MEDS: ceFAZolin 2 GRAM PREMIX BAG IVPB SCH ×2 (06:12→14:26)
[2020-03-07] MEDS: LEVOTHYROXINE NA 112 MCG TABLET (FP) PO SCH (06:12)
[2020-03-07 08:01] LABS: BASO % 0.3 % (0-2.0); HEMATOCRIT 25.4 % (32.4-45.2); HEMOGLOBIN 8.5 GM/dl (10.7-15.3); LYMPH % 6.9 % (8-40); MCH 32.4 pg (25.7-33.7); MCHC 33.3 g/dl (32.0-36.0); MEAN CELL VOLUME 97.1 fl (80-96); MEAN PLT VOLUME 9.1 fl (7.5-11.1); MONO % 12.6 % (3.8-10.2); NEUT % 79.2 % (42.8-82.8); PLATELET COUNT 186 K/MM3 (134-434); RBC 2.61 M/mm3 (3.60-5.2); RDW 12.4 % (11.6-15.6); WHITE BLOOD COUNT 7.8 K/mm3 (4.0-10.8)
[2020-03-07 08:11] LABS: ALBUMIN 2.8 g/dl (3.4-5.0); BILIRUBIN,TOTAL 0.4 mg/dl (0.2-1); CALCIUM 8.4 mg/dl (8.5-10); CREATININE 0.9 mg/dl (0.55-1.3); MAGNESIUM 1.6 mg/dL (1.8-2.4); POTASSIUM 4.4 mmol/L (3.5-5.1); TOT PROT 5.3 g/dl (6.4-8.2)
--- NOTE | 2020-03-07 09:07 | OP ---
DATE OF OPERATION: 03/06/2020 PREOPERATIVE DIAGNOSIS: Left displaced bimalleolar ankle fracture. POSTOPERATIVE DIAGNOSIS: Left displaced bimalleolar ankle fracture. PROCEDURE: Open reduction and internal fixation of left bimalleolar ankle fracture and syndesmosis repair. SURGICAL ATTENDING: Javde Schmidt MD GRID OPERATOR: TERRY Saleem ANESTHESIA: Regional and general. CLOSURE: A periarticular distal fibula plate laterally with Arthrex syndesmosis TightRope, multiple cannulated screws medially with washers and with FiberWire suture, 0 Vicryl fascia, 2-0 subcutaneous and radha skin. ESTIMATED BLOOD LOSS: Negligible. COMPLICATIONS: None. CONDITION: To recovery room in stable condition. DESCRIPTION OF OPERATIVE PROCEDURE: Patient was taken to the operating room on March 06, 2020. Regional and general anesthesia were administered by the anesthesiologist. IV Kefzol was administered prophylactically prior to the case. Left lower extremity was prepped and draped in the usual sterile fashion. First attention was directed to the lateral aspect of the ankle. A 10-cm longitudinal incision over the distal fibula was incised. Hemostasis achieved with Bovie cautery. Sharp dissection was carried full thickness down to the level of the fracture. Periosteal elevator and curets were used to free up the fracture and expose the fracture. There was significant comminution of the fracture, but an anatomical reduction was able to be held with reduction clamps. Due to the comminution we elected not to try to lag the fracture together. The periarticular distal fibula plate was clamped both proximally and distally to the fracture. Multiple proximal and distal holes were drilled, depth gauged and screwed with the appropriate-sized screws. Initially nonlocking screws were used to cinch the plate to the bone and then locking screws were applied proximally and distally and then the nonlocking screws were switched out for locking screws. The quality of the bone was very poor and fixation in the screws was tenuous. Therefore decided to use an Arthrex syndesmosis TightRope to give adjuvant fixation to the plate using fluoroscopy and drilling a guidewire through the plate parallel to the ankle joint from lateral to medial was performed. This was overreamed 4 cortices with the cannulated drill and then an Arthrex syndesmosis TightRope was deployed. The button was flipped on the anteromedial cortex of the tibia and then the sutures were toggled, getting an excellent fixation on the plate and the medial tibia, giving adjuvant fixation to the lateral repair. Next our attention was directed to the medial side. A 5-cm curvilinear longitudinal incision over the medial malleolus was then placed. Hemostasis achieved with Bovie cautery. Sharp dissection carried down to the level of the fracture. Curets and irrigation were used to free up the fracture. Anatomic reduction of the fracture was obtained. Two guidewires were placed up the medial malleolus and exited the posterior cortex of the tibia. Two screws were then drilled. Excellent reduction was obtained, although with range of motion of the screws pulled out of the soft bone in the tibia. We initially tried to give adjuvant fixation with washers, but that did not aid our situation. We then backed out the screws somewhat. We drilled a post proximal to the fracture from medial to lateral. We drilled and placed a cannulated screw with a washer in the tibia and then we looped in a figure-of-8 formation a No. 2 FiberWire suture underneath all the washers. We initially did this anteriorly, but the bone was too soft and the screw migrated. We then had to do it more posteriorly and this time we got good fixation or adequate fixation on the screw and we tied the sutures down snug, then further screwed the screws back into the bone, cinching the washer flush with the tibia and with the medial malleolus to hold the tension band figure-of-8 suture. Again the fixation was less than ideal, but fluoroscopy in the AP, mortise and lateral views revealed good reduction of the mortise with good reduction of the medial malleolus. Both incisions were copiously irrigated with antibiotic solution. Fascia was closed with 0 Vicryl, 2-0 subcutaneous and radha for skin. A "U" splint was applied. Patient was awakened from anesthesia and transferred to recovery room in stable condition. No complications. Estimated blood loss negligible. Gail [id number]
[2020-03-07] MEDS: LISINOPRIL 5 MG TABLET (FP) PO SCH (09:31)
[2020-03-07] MEDS: ARIPiprazole 5 MG TABLET PO SCH (09:32)
[2020-03-07] MEDS: metoPROLOL SUCCINATE 25 MG TAB.SR.24H (FP) PO SCH ×2 (09:32→09:37)
[2020-03-07] MEDS: FOLIC ACID 1 MG TABLET (FP) PO SCH (09:34)
--- NOTE | 2020-03-07 09:45 | PN ---
Progress Note (short form) - Note Progress Note: Ortho Pt seen and examined s/p left ankle ORIF pod #1 Selected Entries 03/07/20 09:00 Temperature 99.6 F Pulse Rate 110 H Respiratory 18 Rate Blood Pressure 112/53 L Laboratory Tests 03/07/20 07:06 WBC 7.8 Hgb 8.5 L Hct 25.4 L Plt Count 186 splint c/d/i, able to move toes, decr sensation (h/o diabetic neuropathy) a/p NWB PT eval walker/crutch training pain control d/c planning
--- NOTE | 2020-03-07 12:22 | PN ---
Progress Note (short form) - Note Progress Note: 54F POD1 s/p left ankle ORIF under GA and peripheral nerve blocks Pt states pain is well controlled and reports no anesthetic complications. AVSS. Continue current regimen.
--- NOTE | 2020-03-07 13:46 | PN ---
Physical Exam: SUBJECTIVE: Patient seen and examined at bedside. Has felt nauseous since waking up this morning, did not want breakfast or lunch. Explained need for PO intake or resumption of IV fluids. Denies pain. OBJECTIVE: Vital Signs Period Temp Pulse Resp BP Sys/Thomson Pulse Ox Last 24 Hr 98.4 F-100.4 F 87-111 14-18 108-162/50-64 95-100 GENERAL: The patient is awake, alert, and fully oriented. Pale, anxious. LUNGS: Breath sounds equal, clear to auscultation bilaterally, no wheezes, no crackles, no accessory muscle use. HEART: Regular rate and rhythm, S1, S2 ABDOMEN: Soft, nontender, nondistended LLE: Wrapped from toes to knee, c/d/i. Tips of toes are warm, well-perfused, +flex/extend, +sensory NEUROLOGICAL: Cranial nerves II through XII grossly intact. Normal speech Laboratory Results - last 24 hr 03/06/20 03/06/20 03/07/20 14:48 18:09 05:23 WBC RBC Hgb Hct MCV MCH MCHC RDW Plt Count MPV Absolute Neuts (auto) Neutrophils % Lymphocytes % Monocytes % Eosinophils % Basophils % Sodium Potassium Chloride Carbon Dioxide Anion Gap BUN Creatinine Est GFR (CKD-EPI)AfAm Est GFR (CKD-EPI)NonAf POC Glucometer 126 67 295 Random Glucose Calcium Magnesium Total Bilirubin AST ALT Alkaline Phosphatase Total Protein Albumin 03/07/20 03/07/20 03/07/20 07:06 07:06 11:43 WBC 7.8 RBC 2.61 L Hgb 8.5 L Hct 25.4 L MCV 97.1 H MCH 32.4 MCHC 33.3 RDW 12.4 Plt Count 186 MPV 9.1 Absolute Neuts (auto) 6.2 Neutrophils % 79.2 Lymphocytes % 6.9 L Monocytes % 12.6 H Eosinophils % 1.0 Basophils % 0.3 Sodium 131 L Potassium 4.4 Chloride 96 L Carbon Dioxide 26 Anion Gap 9 BUN 11.0 Creatinine 0.9 Est GFR (CKD-EPI)AfAm 82.84 Est GFR (CKD-EPI)NonAf 71.48 POC Glucometer 202 Random Glucose 227 H Calcium 8.4 L Magnesium 1.6 L Total Bilirubin 0.4 AST 19 ALT 11 L Alkaline Phosphatase 52 Total Protein 5.3 L Albumin 2.8 L Active Medications Generic Name Dose Route Start Last Admin Trade Name Freq PRN Reason Stop Dose Admin Acetaminophen 650 mg 03/07/20 11:29 Tylenol - PO Q6H PRN PAIN LEVEL 1-5 Aripiprazole 5 mg 03/05/20 10:00 03/07/20 09:32 Abilify PO 5 mg DAILY NAA Administration Atorvastatin Calcium 20 mg 03/05/20 22:00 03/06/20 21:40 Lipitor - PO 20 mg HS NAA Administration Bupropion HCl 150 mg 03/05/20 22:00 03/06/20 21:41 Wellbutrin Xl - PO 150 mg HS NAA Administration Cefazolin Sodium/Dextrose 2 gm 03/06/20 23:00 03/07/20 06:12 Ancef 2 Gm Premixed Ivpb - IVPB 03/07/20 22:59 2 gm Q8H NAA Administration Dextrose 25 gm 03/04/20 18:26 D50w (Vial) - IVPUSH PRN PRN HYPOGLYCEMIA Folic Acid 1 mg 03/05/20 17:30 03/07/20 09:34 Folic Acid - PO 1 mg DAILY [facility] Administration Lactated Ringer's 1,000 mls @ 75 mls/hr 03/06/20 14:45 Lactated Ringers Solution IV ASDIR [facility] Insulin Aspart 1 vial 03/04/20 22:00 03/07/20 11:48 Novolog Vial Sliding Scale - SQ Not Given ACHS [facility] Protocol Levothyroxine Sodium 112 mcg 03/05/20 07:00 03/07/20 06:12 Synthroid - PO 112 mcg ACBK [facility] Administration Lisinopril 2.5 mg 03/05/20 10:00 03/07/20 09:31 Prinivil PO 2.5 mg DAILY [facility] Administration Metoprolol Succinate 25 mg 03/07/20 10:00 03/07/20 09:37 Toprol Xl - PO Not Given DAILY [facility] Morphine Sulfate 2 mg 03/04/20 17:55 03/06/20 06:59 Morphine Sulfate IVPUSH 2 mg Q4H PRN Administration PAIN LEVEL 7 - 10 Ondansetron HCl 4 mg 03/06/20 14:35 Zofran Injection IVPUSH Q6H PRN NAUSEA AND/OR VOMITING Oxycodone HCl 5 mg 03/06/20 14:35 Roxicodone - PO Q4H PRN PAIN LEVEL 1-5 Sertraline HCl 200 mg 03/04/20 22:00 03/06/20 21:41 Zoloft - PO 200 mg HS NAA Administration Trazodone HCl 75 mg 03/04/20 22:00 03/06/20 21:40 Desyrel - PO 75 mg HS NAA Administration ASSESSMENT/PLAN: The patient is a 54 year-old female with a PMH significant for HTN, cardiac arrhythmia, Type II IDDM, hypothyroidism, rheumatoid arthritis, remote head trauma, anxiety and depression. Admitted for left bimalleolar fracture s/p fall. Syncope h/o cardiac arrhythmia --telemetry monitoring: no events --cardiology: decrease ToprolXL dose to 25mg --seen and evaluated by neuro: recommends tapering beta karishma to off; neuro followup for midodrine if symptoms persist Left displaced bimalleolar fracture --s/p ORIF of left bimalleolar ankle fracture and syndesmosis repair --nauseated; avoid narcotics; Zofran PRN; scale back diet to full liquids Hypertension --+orthostatic this afternoon; patient does not want IV reconnected, encourage PO intake if, if not improved will need to restart fluids Type II IDDM --HgbA1C 7.4 --functioning Humalog insulin pump --nursing staff to continue fingersticks and to cover with Novolog per sliding scale Hypothyroidism --TSH wnl --continue levothyroxine Rheumatoid arthritis --methotrexate weekly; daily folic acid Anxiety/depression --continue Abilify, Wellbutrin, trazodone Hypomagnesemia --repleted FEN Fluids: PO intake adequate Electrolytes: replete as indicated Nutrition: full liquid diabetic DVT prophylaxis: SCDs Dispo: continues to require inpatient care. Full code. Visit type - Emergency Visit Emergency Visit: Yes ED Registration Date: 03/04/20 Care time: The patient presented to the Emergency Department on the above date and was hospitalized for further evaluation of their emergent condition. - New Patient This patient is new to me today: No - Critical Care Critical Care patient: No
--- NOTE | 2020-03-07 16:10 | PN ---
Progress Note, Physician History of Present Illness: POD #1 s/p ORIF of left bimalleolar ankle fracture and syndesmosis repair under GA and peripheral nerve blocks. Pain adequately controlled. Described positional syncope with prodrome of light-headedness. - Current Medication List Current Medications: Active Medications Acetaminophen (Tylenol -) 650 mg PO Q6H PRN PRN Reason: PAIN LEVEL 1-5 Aripiprazole (Abilify) 5 mg PO DAILY [facility] Last Admin: 03/07/20 09:32 Dose: 5 mg Documented by: Atorvastatin Calcium (Lipitor -) 20 mg PO [facility] Last Admin: 03/06/20 21:40 Dose: 20 mg Documented by: Bupropion HCl (Wellbutrin Xl -) 150 mg PO [facility] Last Admin: 03/06/20 21:41 Dose: 150 mg Documented by: Cefazolin Sodium/Dextrose (Ancef 2 Gm Premixed Ivpb -) 2 gm IVPB Q8H [facility] Stop: 03/07/20 22:59 Last Admin: 03/07/20 14:26 Dose: 2 gm Documented by: Dextrose (D50w (Vial) -) 25 gm IVPUSH PRN PRN PRN Reason: HYPOGLYCEMIA Folic Acid (Folic Acid -) 1 mg PO DAILY [facility] Last Admin: 03/07/20 09:34 Dose: 1 mg Documented by: Lactated Ringer's (Lactated Ringers Solution) 1,000 mls @ 75 mls/hr IV ASDIR [facility] Insulin Aspart (Novolog Vial Sliding Scale -) 1 vial SQ [facility]; Protocol Last Admin: 03/07/20 11:48 Dose: Not Given Documented by: Levothyroxine Sodium (Synthroid -) 112 mcg PO ACBK [facility] Last Admin: 03/07/20 06:12 Dose: 112 mcg Documented by: Lisinopril (Prinivil) 2.5 mg PO DAILY [facility] Last Admin: 03/07/20 09:31 Dose: 2.5 mg Documented by: Metoprolol Succinate (Toprol Xl -) 25 mg PO DAILY [facility] Last Admin: 03/07/20 09:37 Dose: Not Given Documented by: Ondansetron HCl (Zofran Injection) 4 mg IVPUSH Q6H PRN PRN Reason: NAUSEA AND/OR VOMITING Oxycodone HCl (Roxicodone -) 5 mg PO Q4H PRN PRN Reason: PAIN LEVEL 1-5 Sertraline HCl (Zoloft -) 200 mg PO [facility] Last Admin: 03/06/20 21:41 Dose: 200 mg Documented by: Trazodone HCl (Desyrel -) 75 mg PO [facility] Last Admin: 03/06/20 21:40 Dose: 75 mg Documented by: - Objective Vital Signs: Vital Signs Temperature 99.3 F 03/07/20 14:07 Pulse Rate 101 H 03/07/20 15:00 Respiratory Rate 18 03/07/20 14:07 Blood Pressure 105/52 L 03/07/20 15:00 O2 Sat by Pulse Oximetry (%) 95 03/07/20 14:07 Constitutional: Yes: No Distress, Calm Neck: Yes: Supple Cardiovascular: Yes: Tachycardia Respiratory: Yes: Regular, CTA Bilaterally Gastrointestinal: Yes: Soft, Hypoactive Bowel Sounds Edema: No Wound/Incision: Yes: Dressing Dry and Intact Labs: CBC, BMP 03/07/20 07:06 03/07/20 07:06 INR, PTT INR 1.17 (0.82-1.09) 03/05/20 06:00 Problem List - Problems (1) Bimalleolar fracture of left ankle Code(s): S82.842A - DISPLACED BIMALLEOLAR FRACTURE OF LEFT LOWER LEG, INIT Qualifiers: Encounter type: subsequent encounter Fracture type: closed Fracture healing: with routine healing Qualified Code(s): S82.842D - Displaced bimalleolar fracture of left lower leg, subsequent encounter for closed fracture with routine healing (2) Diabetes mellitus Code(s): E11.9 - TYPE 2 DIABETES MELLITUS WITHOUT COMPLICATIONS Qualifiers: Diabetes mellitus type: type 1 Diabetes mellitus complication status: without complication Qualified Code(s): E10.9 - Type 1 diabetes mellitus without complications (3) HTN (hypertension) Code(s): I10 - ESSENTIAL (PRIMARY) HYPERTENSION Qualifiers: Hypertension type: essential hypertension Qualified Code(s): I10 - Essential (primary) hypertension (4) Hypothyroidism Code(s): E03.9 - HYPOTHYROIDISM, UNSPECIFIED Qualifiers: Hypothyroidism type: unspecified Qualified Code(s): E03.9 - Hypothyroidism, unspecified (5) Rheumatoid arthritis Code(s): M06.9 - RHEUMATOID ARTHRITIS, UNSPECIFIED (6) Syncope Code(s): R55 - SYNCOPE AND COLLAPSE Qualifiers: Syncope type: unspecified Qualified Code(s): R55 - Syncope and collapse Assessment/Plan 2-D echocardiogram10/05/19normal RV and LV size and RV and LV systolic function LVEF 65%. Mild mitral annular calcification. Mildly Sclerotic calcific aortic valve with preserved opening. Mild mitral regurgitation. Mild tricuspid and trace pulmonic regurgitation with normal PAP 24mmHG. . 1. s/p ORIF of left bimalleolar ankle fracture and syndesmosis repair under GA and peripheral nerve blocks w/o CV sequelae 2. Orthostatic syncope 3. Hyponatremia 4. HTN 5. Insulin requiring DM Ha1c 7.4% 6. RA on MTX wkly 7. Hypothyroidism 8. Anxiety/Depression 9. Anemia PLAN: 1. Continue Metoprolol ER 25 mg QD, Lisinopril 2.5 mg QD and Lipitor 20 qd as tolerated 2. DM management to be adjusted 3. Thyroid replacement therapy 4. Monitor electrolytes and correct NA 5. Empiric post-op abx, analgesia as needed 6. Advised to change position slowly and counselled on abortive maneuvers once prodromal symptoms experienced Segment Block Layer: Hamzah Boss MD ([facility]) To follow up with Dr. Boss upon discharge after surgery
[2020-03-07] MEDS ORDERED: metoPROLOL SUCCINATE 25 MG TAB.SR.24H (FP) PO SCH ×2 (16:49→17:15)
[2020-03-07] MEDS: oxyCODONE HCL 5 MG TABLET PO PRN (18:22)
[2020-03-07] MEDS: ACETAMINOPHEN 325 MG TABLET (FP) PO PRN (19:59)
[2020-03-07] MEDS: SERTRALINE HCL 50 MG TABLET (FP) PO SCH (21:25)
[2020-03-07] MEDS: ATORVASTATIN CA 20 MG TABLET (FP) PO SCH (21:26)
[2020-03-07] MEDS: traZODone HCL 50 MG TABLET (FP) PO SCH (21:26)
[2020-03-08] MEDS: INSULIN SLIDING SCALE (NOVOLOG) 1 VIAL SQ SCH ×3 (06:23→18:02)
[2020-03-08] MEDS: oxyCODONE HCL 5 MG TABLET PO PRN ×2 (06:25→10:30)
[2020-03-08] MEDS: LEVOTHYROXINE NA 112 MCG TABLET (FP) PO SCH (06:26)
--- NOTE | 2020-03-08 07:28 | PN ---
Physical Exam: SUBJECTIVE: Patient seen and examined OBJECTIVE: Vital Signs Period Temp Pulse Resp BP Sys/Thomson Pulse Ox Last 24 Hr 98.7 F-99.6 F 87-130 16-18 94-128/48-83 95-98 GENERAL: The patient is awake, alert, and fully oriented, in no acute distress. HEAD: Normal with no signs of trauma. EYES: PERRL, extraocular movements intact, sclera anicteric, conjunctiva clear. No ptosis. ENT: Ears normal, nares patent, oropharynx clear without exudates, moist mucous membranes. NECK: Trachea midline, full range of motion, supple. LUNGS: Breath sounds equal, clear to auscultation bilaterally, no wheezes, no crackles, no accessory muscle use. HEART: Regular rate and rhythm, S1, S2 without murmur, rub or gallop. ABDOMEN: Soft, nontender, nondistended, normoactive bowel sounds, no guarding, no rebound, no hepatosplenomegaly, no masses. EXTREMITIES: 2+ pulses, warm, well-perfused, no edema. NEUROLOGICAL: Cranial nerves II through XII grossly intact. Normal speech, gait not observed. PSYCH: Normal mood, normal affect. SKIN: Warm, dry, normal turgor, no rashes or lesions noted Laboratory Results - last 24 hr 03/07/20 03/07/20 03/07/20 07:06 07:06 11:43 WBC 7.8 RBC 2.61 L Hgb 8.5 L Hct 25.4 L MCV 97.1 H MCH 32.4 MCHC 33.3 RDW 12.4 Plt Count 186 MPV 9.1 Absolute Neuts (auto) 6.2 Neutrophils % 79.2 Lymphocytes % 6.9 L Monocytes % 12.6 H Eosinophils % 1.0 Basophils % 0.3 Sodium 131 L Potassium 4.4 Chloride 96 L Carbon Dioxide 26 Anion Gap 9 BUN 11.0 Creatinine 0.9 Est GFR (CKD-EPI)AfAm 82.84 Est GFR (CKD-EPI)NonAf 71.48 POC Glucometer 202 Random Glucose 227 H Calcium 8.4 L Magnesium 1.6 L Total Bilirubin 0.4 AST 19 ALT 11 L Alkaline Phosphatase 52 Total Protein 5.3 L Albumin 2.8 L 03/07/20 03/07/20 03/08/20 16:42 21:15 06:19 WBC RBC Hgb Hct MCV MCH MCHC RDW Plt Count MPV Absolute Neuts (auto) Neutrophils % Lymphocytes % Monocytes % Eosinophils % Basophils % Sodium Potassium Chloride Carbon Dioxide Anion Gap BUN Creatinine Est GFR (CKD-EPI)AfAm Est GFR (CKD-EPI)NonAf POC Glucometer 209 181 155 Random Glucose Calcium Magnesium Total Bilirubin AST ALT Alkaline Phosphatase Total Protein Albumin Active Medications Generic Name Dose Route Start Last Admin Trade Name Freq PRN Reason Stop Dose Admin Acetaminophen 650 mg 03/07/20 11:29 03/07/20 19:59 Tylenol - PO 650 mg Q6H PRN Administration PAIN LEVEL 1-5 Aripiprazole 5 mg 03/05/20 10:00 03/07/20 09:32 Abilify PO 5 mg DAILY NAA Administration Atorvastatin Calcium 20 mg 03/05/20 22:00 03/07/20 21:26 Lipitor - PO 20 mg HS NAA Administration Bupropion HCl 150 mg 03/05/20 22:00 03/07/20 21:26 Wellbutrin Xl - PO 150 mg HS NAA Administration Dextrose 25 gm 03/04/20 18:26 D50w (Vial) - IVPUSH PRN PRN HYPOGLYCEMIA Folic Acid 1 mg 03/05/20 17:30 03/07/20 09:34 Folic Acid - PO 1 mg DAILY NAA Administration Lactated Ringer's 1,000 mls @ 75 mls/hr 03/06/20 14:45 03/07/20 17:35 Lactated Ringers Solution IV Not Given ASDIR NAA Insulin Aspart 1 vial 03/04/20 22:00 03/08/20 06:23 Novolog Vial Sliding Scale - SQ Not Given ACHS [facility] Protocol Levothyroxine Sodium 112 mcg 03/05/20 07:00 03/08/20 06:26 Synthroid - PO 112 mcg ACBK NAA Administration Lisinopril 2.5 mg 03/05/20 10:00 03/07/20 09:31 Prinivil PO 2.5 mg DAILY NAA Administration Metoprolol Succinate 25 mg 03/07/20 17:15 03/07/20 17:35 Toprol Xl - PO 25 mg DAILY NAA Administration Ondansetron HCl 4 mg 03/06/20 14:35 Zofran Injection IVPUSH Q6H PRN NAUSEA AND/OR VOMITING Oxycodone HCl 5 mg 03/06/20 14:35 03/08/20 06:25 Roxicodone - PO 5 mg Q4H PRN Administration PAIN LEVEL 1-5 Sertraline HCl 200 mg 03/04/20 22:00 03/07/20 21:25 Zoloft - PO 200 mg HS NAA Administration Trazodone HCl 75 mg 03/04/20 22:00 03/07/20 21:26 Desyrel - PO 75 mg HS NAA Administration ASSESSMENT/PLAN: BP low, hold lisinopril repleted Mg
[2020-03-08 08:05] LABS: BASO % 0.4 % (0-2.0); HEMATOCRIT 24.4 % (32.4-45.2); HEMOGLOBIN 8.1 GM/dl (10.7-15.3); LYMPH % 8.1 % (8-40); MCH 32.2 pg (25.7-33.7); MCHC 33.5 g/dl (32.0-36.0); MEAN CELL VOLUME 96.3 fl (80-96); MEAN PLT VOLUME 9.6 fl (7.5-11.1); MONO % 11.3 % (3.8-10.2); NEUT % 79.2 % (42.8-82.8); PLATELET COUNT 195 K/MM3 (134-434); RBC 2.53 M/mm3 (3.60-5.2); RDW 12.3 % (11.6-15.6); WHITE BLOOD COUNT 9.2 K/mm3 (4.0-10.8)
--- NOTE | 2020-03-08 08:07 | PN ---
Progress Note (short form) - Note Progress Note: Ortho Pt seen and examined s/p left ankle ORIF pod #2 Selected Entries 03/08/20 06:00 Temperature 98.9 F Pulse Rate 95 H Respiratory 18 Rate Blood Pressure 113/52 L Laboratory Tests 03/08/20 06:57 WBC Pending Hgb Pending Hct Pending Plt Count Pending splint c/d/i, able to move toes, nvi a/p NWB PT eval walker/crutch training pain control d/c planning
[2020-03-08 08:08] LABS: ALBUMIN 2.8 g/dl (3.4-5.0); BILIRUBIN,TOTAL 0.5 mg/dl (0.2-1); CALCIUM 8.7 mg/dl (8.5-10); CREATININE 0.8 mg/dl (0.55-1.3); MAGNESIUM 1.5 mg/dL (1.8-2.4); POTASSIUM 4.3 mmol/L (3.5-5.1); TOT PROT 5.4 g/dl (6.4-8.2)
[2020-03-08] MEDS ORDERED: MAGNESIUM SULF 50% (8.12 MEQ/2 ML-1 GM VIAL) IVPB ONE (08:21)
[2020-03-08] MEDS ORDERED: MAGNESIUM SULFATE IN WATER 2 GM/50 ML IVPB IVPB ONE (08:30)
--- NOTE | 2020-03-08 09:31 | PN ---
Progress Note, Physician History of Present Illness: POD #2 s/p ORIF of left bimalleolar ankle fracture and syndesmosis repair under GA and peripheral nerve blocks. Pain adequately controlled. Described positional syncope with prodrome of light-headedness, lisinopril held, Toprol decreased. - Current Medication List Current Medications: Active Medications Acetaminophen (Tylenol -) 650 mg PO Q6H PRN PRN Reason: PAIN LEVEL 1-5 Last Admin: 03/07/20 19:59 Dose: 650 mg Documented by: Aripiprazole (Abilify) 5 mg PO DAILY [facility] Last Admin: 03/07/20 09:32 Dose: 5 mg Documented by: Atorvastatin Calcium (Lipitor -) 20 mg PO HS [facility] Last Admin: 03/07/20 21:26 Dose: 20 mg Documented by: Bupropion HCl (Wellbutrin Xl -) 150 mg PO [facility] Last Admin: 03/07/20 21:26 Dose: 150 mg Documented by: Dextrose (D50w (Vial) -) 25 gm IVPUSH PRN PRN PRN Reason: HYPOGLYCEMIA Folic Acid (Folic Acid -) 1 mg PO DAILY [facility] Last Admin: 03/07/20 09:34 Dose: 1 mg Documented by: Lactated Ringer's (Lactated Ringers Solution) 1,000 mls @ 75 mls/hr IV ASDIR [facility] Last Admin: 03/07/20 17:35 Dose: Not Given Documented by: Insulin Aspart (Novolog Vial Sliding Scale -) [address] [facility]; Protocol Last Admin: 03/08/20 06:23 Dose: Not Given Documented by: Levothyroxine Sodium (Synthroid -) 112 mcg PO ACBK [facility] Last Admin: 03/08/20 06:26 Dose: 112 mcg Documented by: Lisinopril (Prinivil) 2.5 mg PO DAILY [facility] Last Admin: 03/07/20 09:31 Dose: 2.5 mg Documented by: Metoprolol Succinate (Toprol Xl -) 25 mg PO DAILY [facility] Last Admin: 03/07/20 17:35 Dose: 25 mg Documented by: Ondansetron HCl (Zofran Injection) 4 mg IVPUSH Q6H PRN PRN Reason: NAUSEA AND/OR VOMITING Oxycodone HCl (Roxicodone -) 5 mg PO Q4H PRN PRN Reason: PAIN LEVEL 1-5 Last Admin: 03/08/20 06:25 Dose: 5 mg Documented by: Sertraline HCl (Zoloft -) 200 mg PO [facility] Last Admin: 03/07/20 21:25 Dose: 200 mg Documented by: Trazodone HCl (Desyrel -) 75 mg PO [facility] Last Admin: 03/07/20 21:26 Dose: 75 mg Documented by: - Objective Vital Signs: Vital Signs Temperature 98.9 F 03/08/20 06:00 Pulse Rate 96 H 03/08/20 08:18 Respiratory Rate 18 03/08/20 06:00 Blood Pressure 127/54 L 03/08/20 08:18 O2 Sat by Pulse Oximetry (%) 97 03/08/20 06:00 Constitutional: Yes: No Distress, Calm Neck: Yes: Supple Cardiovascular: Yes: Regular Rate and Rhythm Respiratory: Yes: Regular, CTA Bilaterally Gastrointestinal: Yes: Normal Bowel Sounds, Soft Edema: No Wound/Incision: Yes: Dressing Dry and Intact Labs: CBC, BMP 03/08/20 06:57 03/08/20 06:57 INR, PTT INR 1.17 (0.82-1.09) 03/05/20 06:00 Problem List - Problems (1) Bimalleolar fracture of left ankle Code(s): S82.842A - DISPLACED BIMALLEOLAR FRACTURE OF LEFT LOWER LEG, INIT Qualifiers: Encounter type: subsequent encounter Fracture type: closed Fracture healing: with routine healing Qualified Code(s): S82.842D - Displaced bimalleolar fracture of left lower leg, subsequent encounter for closed fracture with routine healing (2) Diabetes mellitus Code(s): E11.9 - TYPE 2 DIABETES MELLITUS WITHOUT COMPLICATIONS Qualifiers: Diabetes mellitus type: type 1 Diabetes mellitus complication status: without complication Qualified Code(s): E10.9 - Type 1 diabetes mellitus without complications (3) HTN (hypertension) Code(s): I10 - ESSENTIAL (PRIMARY) HYPERTENSION Qualifiers: Hypertension type: essential hypertension Qualified Code(s): I10 - Essential (primary) hypertension (4) Hypothyroidism Code(s): E03.9 - HYPOTHYROIDISM, UNSPECIFIED Qualifiers: Hypothyroidism type: unspecified Qualified Code(s): E03.9 - Hypothyroidism, unspecified (5) Rheumatoid arthritis Code(s): M06.9 - RHEUMATOID ARTHRITIS, UNSPECIFIED (6) Syncope Code(s): R55 - SYNCOPE AND COLLAPSE Qualifiers: Syncope type: unspecified Qualified Code(s): R55 - Syncope and collapse Assessment/Plan 2-D echocardiogram10/05/19normal RV and LV size and RV and LV systolic function LVEF 65%. Mild mitral annular calcification. Mildly Sclerotic calcific aortic valve with preserved opening. Mild mitral regurgitation. Mild tricuspid and trace pulmonic regurgitation with normal PAP 24mmHG. . 1. s/p ORIF of left bimalleolar ankle fracture and syndesmosis repair under GA and peripheral nerve blocks w/o CV sequelae 2. Orthostatic syncope 3. Hyponatremia 4. HTN 5. Insulin requiring DM Ha1c 7.4% 6. RA on MTX wkly 7. Hypothyroidism 8. Anxiety/Depression 9. Anemia PLAN: 1. Continue Metoprolol ER 25 mg QD, resume Lisinopril 2.5 mg QD and Lipitor 20 qd as hemodynamics tolerate 2. DM management to be adjusted 3. Thyroid replacement therapy 4. Monitor electrolytes and correct NA 5. Empiric post-op abx, analgesia as needed 6. Advised to change position slowly and counselled on abortive maneuvers once prodromal symptoms experienced Admission Nurse Coordinator: Hamzah Boss MD ([facility]) To follow up with Dr. Boss upon discharge after surgery
[2020-03-08] MEDS: FOLIC ACID 1 MG TABLET (FP) PO SCH (10:07)
[2020-03-08] MEDS: ARIPiprazole 5 MG TABLET PO SCH (10:07)
[2020-03-08] MEDS: ACETAMINOPHEN 325 MG TABLET (FP) PO PRN (10:30)
[2020-03-08 14:35] VITALS: BP 101/51; PULSE 86; TEMP 98.4
--- NOTE | 2020-03-08 16:03 | DS ---
Physical Exam: SUBJECTIVE: Patient seen and examined OBJECTIVE: Vital Signs Period Temp Pulse Resp BP Sys/Thomson Pulse Ox Last 24 Hr 98.4 F-99.1 F 86-105 16-18 90-128/48-60 96-99 PHYSICAL EXAM GENERAL: The patient is awake, alert, and fully oriented, in no acute distress. HEAD: Normal with no signs of trauma. EYES: PERRL, extraocular movements intact, sclera anicteric, conjunctiva clear. ENT: Ears normal, nares patent, oropharynx clear without exudates, moist mucous membranes. NECK: Trachea midline, full range of motion, supple. LUNGS: Breath sounds equal, clear to auscultation bilaterally, no wheezes, no crackles, no accessory muscle use. HEART: Regular rate and rhythm, S1, S2 without murmur, rub or gallop. ABDOMEN: Soft, nontender, nondistended, normoactive bowel sounds, no guarding, no rebound, no hepatosplenomegaly, no masses. EXTREMITIES: 2+ pulses, warm, well-perfused, no edema. NEUROLOGICAL: Cranial nerves II through XII grossly intact. Normal speech, gait not observed. PSYCH: Normal mood, normal affect. SKIN: Warm, dry, normal turgor, no rashes or lesions noted. LABS Laboratory Results - last 24 hr 03/07/20 03/07/20 03/08/20 16:42 21:15 06:19 WBC RBC Hgb Hct MCV MCH MCHC RDW Plt Count MPV Absolute Neuts (auto) Neutrophils % Lymphocytes % Monocytes % Eosinophils % Basophils % Sodium Potassium Chloride Carbon Dioxide Anion Gap BUN Creatinine Est GFR (CKD-EPI)AfAm Est GFR (CKD-EPI)NonAf POC Glucometer 209 181 155 Random Glucose Calcium Magnesium Total Bilirubin AST ALT Alkaline Phosphatase Total Protein Albumin 03/08/20 03/08/20 03/08/20 06:57 06:57 11:56 WBC 9.2 RBC 2.53 L Hgb 8.1 L Hct 24.4 L MCV 96.3 H MCH 32.2 MCHC 33.5 RDW 12.3 Plt Count 195 MPV 9.6 Absolute Neuts (auto) 7.4 Neutrophils % 79.2 Lymphocytes % 8.1 Monocytes % 11.3 H Eosinophils % 1.0 Basophils % 0.4 Sodium 134 L Potassium 4.3 Chloride 97 L Carbon Dioxide 28 Anion Gap 9 BUN 9.0 Creatinine 0.8 Est GFR (CKD-EPI)AfAm 95.52 Est GFR (CKD-EPI)NonAf 82.42 POC Glucometer 163 Random Glucose 162 H Calcium 8.7 Magnesium 1.5 L Total Bilirubin 0.5 AST 19 ALT 10 L Alkaline Phosphatase 66 D Total Protein 5.4 L Albumin 2.8 L HOSPITAL COURSE: Date of Admission:03/04/20 Date of Discharge: 03/08/20 BP low, hold lisinopril repleted Mg The patient is a 54 year-old female with a PMH significant for HTN, cardiac arrhythmia, Type II IDDM, hypothyroidism, rheumatoid arthritis, remote head trauma, anxiety and depression. Admitted for left bimalleolar fracture s/p fall. Syncope --in 10 days prior to admission had fallen 3 times; (+) prodromal symptoms of unsteadiness and dizziness immediately prior to each fall; fingersticks regularly, no episodes of hypoglycemia over the last 10 days --found to be orthostatic, treated with IV fluids --telemetry: no events --seen and evaluated by cardiology, decreased Toprol XL dose to 25mg --troponin neg x 2 Left displaced bimalleolar fracture --03/07 ORIF of left bimalleolar ankle fracture and syndesmosis repair with Dr. Schmidt --outpatient f/u 7-10 days Type II IDDM --HgbA1C 7.4 --functioning Humalog insulin pump --nursing staff to continue fingersticks and to cover with Novolog per sliding scale Hypertension --low BP during hospitalization; Toprol XL dose decreased and lisinopril was held; advised to continue to hold until follows up with PCP Hypothyroidism --TSH wnl --continued levothyroxine Rheumatoid arthritis --methotrexate weekly; daily folic acid Anxiety/depression --continued Abilify, Wellbutrin, trazodone Minutes to complete discharge: 35 Discharge Summary Problems reviewed: Yes Reason For Visit: DISPLACED BIMALLEOLAR FRACTURE OF LEFT LOWER LEG, Current Active Problems Anxiety (Acute) Bimalleolar fracture of left ankle (Acute) Depression (Acute) Diabetes mellitus (Acute) HTN (hypertension) (Acute) Hypothyroidism (Acute) Preop cardiovascular exam (Acute) Rheumatoid arthritis (Acute) Syncope (Acute) Goals: Per Dr Schmidt patient is Non Weight Bearing. Call Dr. Schmidt tomorrow for follow-up [phone] Condition: Improved - Instructions Diet, Activity, Other Instructions: You must not put any weight on your left leg. Complete non-weight bearing status on that leg. Keep the leg elevated. You should follow up with Dr. Schmidt in 7-10 days. Call his office to make an appointment. A prescription has been sent to your pharmacy for ToprolXL 25mg, a lower dose than you were taking previously. Please take this lower dose medication as prescribed. It is recommended you STOP taking lisinopril on discharge because of your blood pressure. Please discuss this with your PCP or your olive grader at your earliest opportunity. You should see them within 1 week of your discharge. Referrals: Kaya Chaparro MD [Primary Care Provider] - Hamzah Boss [Non Staff, Medical] - Disposition: HOME - Home Medications Comprehensive Discharge Medication List: Ambulatory Orders Aripiprazole [Abilify] 5 mg PO DAILY 03/04/20 Aspirin Coated [Ecotrin -] 81 mg PO DAILY 03/04/20 Bupropion HCl [Wellbutrin Xl -] 150 mg PO HS 03/04/20 Folic Acid 1 mg PO DAILY 03/04/20 Insulin (LOG) Aspart [NovoLOG -] 0 units SQ QID 03/04/20 Insulin Pump [Insulin Pump - (Nf)] 1 each SQ ASDIR 03/04/20 Levothyroxine [Synthroid -] 112 mcg PO DAILY 03/04/20 Lisinopril [Zestril] 2.5 mg PO DAILY 03/04/20 Methotrexate Sodium/Pf [Methotrexate 250 mg/10 ml Vial] 25 mg IJ WEEKLY 03/04/20 Metoprolol Succinate [Toprol Xl] 50 mg PO DAILY 03/04/20 Semaglutide [Ozempic] 0.5 mg SQ WEEKLY 03/04/20 Sertraline HCl [Zoloft] 200 mg PO HS 03/04/20 Simvastatin 40 mg PO HS 03/04/20 Trazodone HCl 75 mg PO HS 03/04/20 traZODone HCL [Trazodone HCl] 75 mg PO HS 03/04/20 This patient is new to me today: No Emergency Visit: Yes ED Registration Date: 03/04/20 Care time: The patient presented to the Emergency Department on the above date and was hospitalized for further evaluation of their emergent condition. Critical Care patient: No - Discharge Referral Referred to [facility] No
[2020-03-08] MEDS ORDERED: PT OWN MED DRAWER 7, Y5N ONE (16:43)
== END 2020-03-08 18:30 | disposition home or self-care (01) | DRG 313 ==
LOC: FER 14:55 → FM/S 17:18
PROVIDERS: ADMIT Internal Medicine; ATTEND Nurse Practitioner Acute Care
PROC: 0QSK04Z Reposition Left Fibula with Internal Fixation Device, Open Approach (ICD-10-PCS; principal; 2020-03-06 15:25)
DX: S82.842A Displaced bimalleolar fracture of left lower leg, initial encounter for closed fracture (principal); W19.XXXA Unspecified fall, initial encounter; Y93.9 Activity, unspecified; Y92.89 Other specified places as the place of occurrence of the external cause; Y99.9 Unspecified external cause status; R55 Syncope and collapse; I10 Essential (primary) hypertension; E11.9 Type 2 diabetes mellitus without complications; E03.9 Hypothyroidism, unspecified; F41.8 Other specified anxiety disorders; E83.42 Hypomagnesemia; M06.9 Rheumatoid arthritis, unspecified; E87.1 Hypo-osmolality and hyponatremia; D64.9 Anemia, unspecified; E11.42 Type 2 diabetes mellitus with diabetic polyneuropathy; I95.1 Orthostatic hypotension
CPT/HCPCS: 36415; 70450-TC; 73610-TC-LT-FY; 80048; 80053; 81003; 81015; 82550; 82962; 83036; 83735; 84443; 84484; 85025; 85027; 85610; 86850; 86900; 86901; 93005; 94760; 97116-GP; 97162-GP; 99285-25; J0131; U0003

== ENCOUNTER 2021-05-23 20:55 | Emergency (ER) | payer OTHER ==
[2021-05-23 21:05] VITALS: BP 135/78; PULSE 73; TEMP 97.8; BMI 25.2
[2021-05-23] MEDS ORDERED: AMOX TR/POT CLAV 875MG/125MG TABLETS (FP) PO ONE (21:13)
[2021-05-23] MEDS ORDERED: AMOX TR/POT CLAV 875MG/125MG TABLETS (FP) ONE (21:14)
[2021-05-23] MEDS ORDERED: ACETAMINOPHEN 500 MG TABLET (FP) PO ONE (21:46)
[2021-05-23] MEDS ORDERED: ACETAMINOPHEN 500 MG TABLET (FP) ONE (21:48)
[2021-05-23] MEDS ORDERED: DIPHTH,PERTUSS(ACELL),TET 0.5 ML DISP.SYRIN IM ONE ×2 (21:52)
== END 2021-05-23 21:57 | disposition home or self-care (01) ==
LOC: FER 20:55
PROC: 3E0234Z Introduction of Serum, Toxoid and Vaccine into Muscle, Percutaneous Approach (ICD-10-PCS; principal; 2021-05-23)
DX: S61.451A Open bite of right hand, initial encounter (principal); W55.01XA Bitten by cat, initial encounter; Y92.9 Unspecified place or not applicable
CPT/HCPCS: 73130-TC-RT-FY; 90471; 90715; 99284-25

== ENCOUNTER 2021-06-19 22:38 | Emergency (ER) | payer OTHER ==
[2021-06-19] MEDS ORDERED: FLUORESCEIN NA 1 EA STRIP ONE (22:59)
[2021-06-19] MEDS ORDERED: TETRACAINE 0.5% OPHTH SOLN 2 ML BOTTLE ONE (23:00)
[2021-06-19] MEDS ORDERED: TOBRAMYCIN 0.3% OPHTH SOLN 5 ML BOTTLE OD ONE (23:08)
[2021-06-19 23:18] VITALS: BP 121/66; PULSE 78; TEMP 99.2; BMI 28.1
[2021-06-19] MEDS ORDERED: TOBRAMYCIN 0.3% OPHTH SOLN 5 ML BOTTLE ONE (23:19)
== END 2021-06-19 23:23 | disposition home or self-care (01) ==
LOC: FER 22:38
DX: S05.01XA Injury of conjunctiva and corneal abrasion without foreign body, right eye, initial encounter (principal); Y99.9 Unspecified external cause status
CPT/HCPCS: 99283-25

== ENCOUNTER 2023-01-02 21:10 | Emergency (ER) | payer OTHER ==
[2023-01-02 22:02] VITALS: BP 164/80; PULSE 86; RESP 18; TEMP 98.8; BMI 32.2
== END 2023-01-02 23:46 | disposition home or self-care (01) ==
LOC: FER 21:10
PROC: 0HQ1XZZ Repair Face Skin, External Approach (ICD-10-PCS; principal; 2023-01-02)
DX: S01.112A Laceration without foreign body of left eyelid and periocular area, initial encounter (principal); W01.198A Fall on same level from slipping, tripping and stumbling with subsequent striking against other object, initial encounter
CPT/HCPCS: 70450-TC; 99284-25

== ENCOUNTER 2023-01-09 17:44 | Emergency (ER) | payer OTHER ==
[2023-01-09 17:55] VITALS: BP 152/76; PULSE 72; RESP 20; TEMP 98.3; BMI 31.8
== END 2023-01-09 18:41 | disposition home or self-care (01) ==
LOC: FER 17:44
DX: Z48.02 Encounter for removal of sutures (principal)
CPT/HCPCS: 99281-25